=== PATIENT | female | born 1975 | race Caucasian/White ===

== ENCOUNTER → 2017-03-13 | Outpatient (CLI) | payer OTHER ==
--- NOTE | ~2017-03-13 | US98 ---
[facility] A Service of [facility] [place] RADIOLOGY TEXT RESULTS PATIENT: ALEXIA CLAYTON LOCATION: [facility] : 73 UNIT #: [id number] AGE: [address]: KERLINE HARDEN MD SEX: F ORDER DR: [id number] [address] [address] [id number] O MR#: [id number] Acc #: [id number] NAME: ALEXIA CLAYTON : 1975 SEX: F STUDY DATE/TIME: 03/13/2017 13:30 UNIT: [facility] ROOM: STUDY DESCRIPTION: US Pelvic Non-OB Complete Attending Physician: David Harden M.D. Referring Physician: David Harden M.D. Ordering Physician: David Harden M.D. Primary Care Physician: David Harden M.D. MEDICAL IMAGING REPORT This report is preliminary unless electronic signature is present. EXAM Transabdominal and transvaginal pelvic ultrasound 03/13/2017 HISTORY Secondary amenorrhea. Left side pelvic pain for 2 months with irregular menses for 3 months. FINDINGS Transabdominal and transvaginal pelvic ultrasound was performed. Endovaginal ultrasound was performed for attempted better visualization of the adnexal structures. The bladder is normal in appearance. The uterus measures 10.6 cm craniocaudal x 5.4 cm AP x approximately 5 cm transverse. The endometrial stripe measured 12 mm. The left ovary measured 3.6 cm x 3 cm x 2.4 cm while the right ovary measured 3 cm x 4 cm x 1.8 cm. There is no adnexal mass. There is no free fluid in the pelvis. IMPRESSION Negative transabdominal and transvaginal pelvic ultrasound. Dictated by... Jaskaran Resendze M.D. THIS IS AN ELECTRONICALLY VERIFIED REPORT Jaskaran Resendez M.D. at 03/15/2017 9:33 AM SUMEET/tabitha TD: 03/14/2017 09:31 JOB #: [id number] MEDICAL IMAGING REPORT Page 1 of 1
== END | disposition home or self-care (01) ==
LOC: SGUS 13:17
DX: N91.1 Secondary amenorrhea (principal)
CPT/HCPCS: 76830; 76856

== ENCOUNTER → 2017-03-26 | Outpatient (CLI) | payer OTHER ==
--- NOTE | ~2017-03-26 | MY11 ---
[facility] A Service of [facility] RADIOLOGY TEXT RESULTS PATIENT: ALEXIA CLAYTON LOCATION: [facility] : 73 UNIT #: [id number] AGE: [address]: KERLINE HARDEN MD SEX: F ORDER DR: [id number] [place] [id number] O MR#: [id number] Acc #: [id number] NAME: ALEXIA CLAYTON : 1975 SEX: F STUDY DATE/TIME: 03/26/2017 11:01 UNIT: [facility] ROOM: STUDY DESCRIPTION: MY Mammogram Screening [facility] [place] Attending Physician: David Harden M.D. Referring Physician: David Harden M.D. Ordering Physician: David Harden M.D. Primary Care Physician: David Harden M.D. MEDICAL IMAGING REPORT This report is preliminary unless electronic signature is present. EXAM Bilateral digital screening mammogram with CAD COMPARISON None available. Prior mammograms were previously performed in [place] and the patient could not remember where. INDICATION Breast cancer screening. 41-year-old female who reports intermittent upper outer quadrant left breast tenderness for 3 months which appears to be associated with the patient's menstrual cycle. She denies personal or family history of breast cancer. FINDINGS There are scattered fibroglandular densities. There are no suspicious findings in either breast. IMPRESSION No mammographic evidence of malignancy. Continued annual screening mammography and clinical breast exam are recommended. Patients over the age of 40 are entered into a reminder system with target due date for the next mammogram. A result letter will also be sent to the patient. BIRADS: 1 Negative Dictated by... Carmine Quiles M.D. THIS IS AN ELECTRONICALLY VERIFIED REPORT Carmine Quiles M.D. at 03/29/2017 2:48 PM JAMESON/[facility] A Service of [facility] RADIOLOGY TEXT RESULTS PATIENT: ALEXIA CLAYTON LOCATION: [facility] #: [id number] : [birth year] UNIT #: [id number] AGE: [address]: KERLINE HARDEN MD SEX: F ORDER DR: TD: 03/26/2017 14:04 JOB #: [id number] MEDICAL IMAGING REPORT Page 1 of 1
== END | disposition home or self-care (01) ==
LOC: SMAM 10:30
DX: Z12.31 Encounter for screening mammogram for malignant neoplasm of breast (principal)
CPT/HCPCS: G0202